=== PATIENT | female | born 1960 ===

== ENCOUNTER → 2021-02-13 | Outpatient (CLI) | payer SELFPAY ==
[2021-02-18 06:40] LABS: Stool Occult Bld Immuno 1 Negative (NEGATIVE)
== END | disposition home or self-care (01) ==
LOC: LAB SHORT 14:37
PROVIDERS: Nurse Practitioner Family
DX: Z12.11 Encounter for screening for malignant neoplasm of colon (principal)
CPT/HCPCS: G0328